=== PATIENT | female | born 1935 | race Asian ===

== ENCOUNTER 2017-10-18 02:45 | Emergency (ER) | payer MEDICARE, BC ==
[~2017-10-18] VITALS: Ht 154.9 cm; Wt 50.8 kg
--- NOTE | 2017-10-18 03:15 | NUR ---
Dr. Vilchis at bedside for MSE.
[2017-10-18] MEDS ORDERED: NEBI10TA2 PO (03:18)
[2017-10-18] MEDS ORDERED: EZET10TA13 PO (03:18)
[2017-10-18] MEDS ORDERED: POTA10TA15 PO (03:18)
[2017-10-18] MEDS ORDERED: DIGO125T PO (03:18)
[2017-10-18] MEDS ORDERED: MULT1TAB73 PO (03:18)
[2017-10-18] MEDS ORDERED: LORA-258 PO (03:18)
[2017-10-18] MEDS ORDERED: ATOR10TA PO (03:18)
[2017-10-18] MEDS ORDERED: AZIL1TAB3 PO (03:18)
[2017-10-18] MEDS ORDERED: CALC-20 PO (03:18)
[2017-10-18] MEDS ORDERED: ASPI-605 PO (03:18)
[2017-10-18] MEDS ORDERED: EXEM25TA PO (03:18)
[2017-10-18] MEDS ORDERED: DIAZEPAM 2 MG TABLET PO ONE (03:30)
[2017-10-18 04:00] LABS: BASOPHILS % (AUTO) 0.8 % (0.0-2.0); EOSINOPHILS # (AUTO) 0.2 K/uL (0.0-0.7); EOSINOPHILS % (AUTO) 2.8 % (0.0-7.0); HEMATOCRIT 37.2 % (31.2-41.9); HEMOGLOBIN 14.2 g/dL (10.9-14.3); LYMPHOCYTES # (AUTO) 1.7 K/uL (20.0-40.0); LYMPHOCYTES % (AUTO) 32.4 % (20.5-51.5); MEAN CORPUSCULAR HEMOGLOBIN 37.4 uug (24.7-32.8); MEAN CORPUSCULAR HGB CONC 38 g/dL (32.3-35.6); MEAN CORPUSCULAR VOLUME 97.9 fL (75.5-95.3); MONOCYTES # (AUTO) 0.4 K/uL (2.0-10.0); MONOCYTES % (AUTO) 7.8 % (0.0-11.0); NEUTROPHILS % (AUTO) 56.2 % (38.5-71.5); PLATELET COUNT (AUTO) 254 K/uL (179-408); WHITE BLOOD COUNT (AUTO) 5.4 K/uL (3.8-11.8)
--- NOTE | 2017-10-18 04:00 | NUR ---
Pt out of ER for CT via wheelchair.
[2017-10-18] MEDS ORDERED: DIAZEPAM 2 MG TABLET ONE (04:01)
[2017-10-18 04:10] LABS: CARBON DIOXIDE 30 mmol/L (21-32); CHLORIDE 97 mmol/L (98-107); CREATININE 1.1 mg/dL (0.6-1.3); GLUCOSE 112 mg/dL (74-106); POTASSIUM 3.5 mmol/L (3.5-5.1); UREA NITROGEN, BLOOD 11 mg/dL (7-18)
--- NOTE | 2017-10-18 04:12 | NUR ---
Pt back to ER from CT.
--- NOTE | 2017-10-18 05:00 | NUR ---
Ambulated pt to test for dizziness. Pt states she's doing fine, still slightly dizzy, but feeling much better. notified.
--- NOTE | 2017-10-18 05:30 | NUR ---
Patient discharged to home in stable conditon. Written and verbal after care instructions given. Patient verbalizes understanding of instructions. Pt ambulated out of ER with steady gait, IV site discontinued, VSS, no acute signs of distress, all belongings taken.
[2017-10-18 05:54] VITALS: BP 134/71
== END 2017-10-18 05:30 | disposition home or self-care (01) ==
LOC: ER 02:54
DX: R42 Dizziness and giddiness (principal); I10 Essential (primary) hypertension; Z79.82 Long term (current) use of aspirin; Z88.0 Allergy status to penicillin; Z96.641 Presence of right artificial hip joint
CPT/HCPCS: 36415; 70030-TC; 70450; 85025; 93005; A4663